=== PATIENT | female | born 1955 | race Caucasian/White ===

== ENCOUNTER 2020-08-15 10:55 | Outpatient (REF) | payer SELFPAY | END 2020-08-15 10:56 | disposition home or self-care (01) | LOC: HO.HAP 10:55 | PROVIDERS: PCP Physician Assistant Medical; Referring Provider Physician Assistant Medical; Visit Provider Physician Assistant Medical | DX: Z13.89 Encounter for screening for other disorder (principal) | CPT/HCPCS: 92700 ==

== ENCOUNTER 2020-08-25 15:38 | Outpatient (REF) | payer SELFPAY | END 2020-08-25 15:39 | disposition home or self-care (01) | LOC: HO.HAP 15:38 | PROVIDERS: PCP Physician Assistant Medical; Referring Provider Physician Assistant Medical; Visit Provider Physician Assistant Medical | DX: Z13.89 Encounter for screening for other disorder (principal) ==

== ENCOUNTER 2021-01-23 09:56 | Outpatient (REF) | payer SELFPAY ==
--- NOTE | 2021-01-23 10:12 | MHC.AU.P13 ---
Hearing Instrument Maintenance Date of Visit: 01/23/21 Right Ear: Paper Reeler: Phonak Model: Audeo P90-13T Serial Number: [id number] Repair Warranty: 09/11/2023 Loss and Damage Warranty: 09/11/2023 Battery Size: 13 Metal Handler: Size 0 M Type of Dome: Small vented dome Type of Wax Guard: Cerushield Left Ear: Paper Reeler: Phonak Model: Audeo P90-13T Serial Number: [id number] RepairWarranty: 09/11/2023 Loss and Damage Warranty: 09/11/2023 Battery Size: 13 Metal Handler: Size 0 M Type of Dome: Small open dome Type of Wax Guard: Cerushield Follow-Up Summary: Hearing aids brought in for maintenance. Hearing aids cleaned, wax guards replaced, mics vacuumed, small open dome left and small vented dome right both replaced - both aids amplifying clearly. Recommendations: Recommendations: Hearing instrument follow-up or maintenance as needed. Signature: Provider: NANCY Martinez-HIS
== END 2021-01-23 09:57 | disposition home or self-care (01) ==
LOC: HO.HAP 09:56
PROVIDERS: Visit Provider Physician Assistant Medical
DX: Z13.89 Encounter for screening for other disorder (principal)

== ENCOUNTER 2021-06-02 10:06 | Outpatient (REF) | payer MEDICARE, BC, SELFPAY ==
--- NOTE | 2021-06-02 14:34 | MHC.AU.AHA ---
Adult Audiological Evaluation Date of Visit: 06/02/21 Reason for Appointment: Audiological re-evaluation to monitor the status of Mrs. Brownlee's hearing loss. She has a longstanding history of bilateral, asymmetrical, sensorineural hearing loss with the right ear hearing worse than the left. She uses hearing aids binaurally. Mrs. Brownlee notes that she has been turning the volume of the hearing aids up frequently and feels she isn't hearing as well. Change in her medical history includes swelling in her neck which is possibly related to her thyroid and is in the process of being evaluated. Previous Hearing Test Results: [facility], 12/14/2019- Normal hearing sloping to a mild to moderate sensorineural hearing loss in the left ear. Normal hearing sloping to a mild to moderately-severe sensorineural hearing loss in the right ear. Medical History: Allergies: Claritin, amoxicillin, epinephrine Medication List: Valacyclovir 500 mg 4 tabs 2x daily, Vitamin D 2000 units, Levothyroxine 50mcg, Vitamin B12 1000 mcg, sertraline 50 mg Hearing Instrument History- Right Ear: Compensation Supervisor: [employer] Model: Spindle Researcheo P90-13T Serial Number: [id number] Battery Size: 13 Repair Warranty: 09/11/2023 Loss and Damage Warranty: 09/11/2023 Dispensed By: [facility] Date of Fittin06/24/20 Hearing Instrument History- Left Ear: Compensation Supervisor: Phonak Model: Spindle Researcheo P90-13T Serial Number: [id number] Battery Size: 13 Warranty: 09/11/2023 Loss and Damage Warranty: 09/11/2023 Dispensed By: [facility] Date of Fittin06/24/20 Otoscopy: Right Ear: Unremarkable Left Ear: Unremarkable Tympanometry: Tympanometry performed due to: To assess integrity of the middle ear system Right Ear: Normal Middle Ear System (Type A) Left Ear: Normal Middle Ear System (Type A) Hearing Evaluation: Transducer(s) Used: Insert Earphones, Bone Conduction Method: Conventional Audiometry Stimuli Used: Pure Tones Right Ear: Description of Hearing: Mild hearing loss at 250 Hz, rising to normal hearing from 500-750 Hz, and sloping to a mild to moderately severe sensorineural hearing loss from 3985-7950 Hz. Left Ear: Description of Hearing: Mild hearing loss at 250 Hz, rising to normal hearing from 500-1000 Hz, and sloping to a mild to moderate sensorineural hearing loss from 5550-0831 Hz. Speech Recognition Threshold (SRT): Method Used: Monitored Live Voice Stimuli Used: Spondee Words Right Ear: 40 dBHL Left Ear: 35 dBHL Word Discrimination: Method: Recorded Lists Word Lists Used: NU-6 Right Ear: 84% at 80 dBHL Left Ear: 92% at 75 dBHL Comparison: Compared to most recent evaluation: Slight decrease bilaterally, particularly in the low-frequencies. Recommendations: Audiological re-evaluation in one year. Hearing aid(s) reprogrammed with updated test results. Diagnosis: Primary Diagnosis: H90.3 Bilateral Sensorineural Hearing Loss Services Performed: Comprehensive Audiological Evaluation (CPT 66864) Tympanometry (CPT 21437) Signature: Provider: Jami Rose, CCC-A
== END 2021-06-02 10:07 | disposition home or self-care (01) ==
LOC: HO.SH 10:06
PROVIDERS: Visit Provider Physician Assistant Medical
DX: H90.3 Sensorineural hearing loss, bilateral (principal)
CPT/HCPCS: 92557; 92567

== ENCOUNTER 2021-06-02 11:41 | Outpatient (REF) | payer SELFPAY | END 2021-06-02 11:42 | disposition home or self-care (01) | LOC: HO.HAP 11:41 | PROVIDERS: Visit Provider Physician Assistant Medical | DX: Z46.1 Encounter for fitting and adjustment of hearing aid (principal); H90.3 Sensorineural hearing loss, bilateral | CPT/HCPCS: V5266 ==

== ENCOUNTER 2022-04-23 15:13 | Outpatient (REF) | payer SELFPAY ==
--- NOTE | 2022-04-23 15:32 | MHC.AU.HFU ---
Hearing Instrument Follow-Up- Binaural Date of Visit: 04/23/22 Right Ear: Air Crew Member: Phonak Model: [employer] P90-13T Serial Number: [id number] Repair Warranty: 09/11/2023 Loss and Damage Warranty: 09/11/2023 Battery Size: 13 Trust Vault Custodian: Size 0 M Type of Dome: Small vented dome Type of Wax Guard: Cerushield Left Ear: Air Crew Member: Phonak Model: Audeo P90-13T Serial Number: [id number] Repair Warranty: 09/11/2023 Loss and Damage Warranty: 09/11/2023 Battery Size: 13 Trust Vault Custodian: Size 0 M Type of Dome: Small open dome Type of Wax Guard: Cerushield Follow-Up Summary: Patient was scheduled for a remote support appointment. Her hearing aids were not being detected by the simon. Patient reports that she recently updated the simon to the new version. [employer] has since stated that there is a compatibility issue with the latest Android and iOS operating system updates, making the simon unable to connect to the hearing aids. The basic Bluetooth functionality still works. [employer] is working on a patch for this problem. Patient reports that the primary reason for the appointment was to turn the volume up. She also reports that she has been getting feedback, especially when she turns the volume up on the hearing aids. Discussed that the feedback would need to be addressed in person, as it could be due to a cerumen issue or because a different dome is needed. The feedback office manager receptionist cannot be run during Remote Support. Her call was transferred to the patient coordinator front desk to schedule an in-person appointment. Diagnosis Code(s): Primary Diagnosis: H90.3 Bilateral Sensorineural Hearing Loss Signature: Provider: Jami Eckert, [facility]
== END 2022-04-23 15:14 | disposition home or self-care (01) ==
LOC: HO.HAP 15:13
PROVIDERS: Visit Provider Physician Assistant Medical
DX: Z13.89 Encounter for screening for other disorder (principal)

== ENCOUNTER 2022-06-01 09:33 | Outpatient (REF) | payer MEDICARE, BC, SELFPAY | END 2022-06-01 09:34 | disposition home or self-care (01) | LOC: HO.HAP 09:33 | PROVIDERS: Visit Provider Family Medicine | DX: Z46.1 Encounter for fitting and adjustment of hearing aid (principal); H90.3 Sensorineural hearing loss, bilateral | CPT/HCPCS: 92552 ==

== ENCOUNTER 2022-06-20 11:19 | Outpatient (REF) | payer SELFPAY ==
--- NOTE | 2022-06-20 13:45 | MHC.AU.HFU ---
Hearing Instrument Follow-Up- Binaural Date of Visit: 06/20/22 Right Ear: Duty Engineer: Phonak Model: Audeo P90-13T Serial Number: [id number] Repair Warranty: 09/10/2022 Loss and Damage Warranty: 09/11/2023 Service Plan: Battery Size: 13 Workforce Development Specialist: Size 0 M Type of Mold: C-Shell #[id number] warranty 09/10/2022 Type of Wax Guard: CeruStop Dispensed By: [facility] Date of Fittin06/24/20 Left Ear: Duty Engineer: Phonak Model: Audeo P90-13T Serial Number: [id number] Repair Warranty: 09/11/2023 Loss and Damage Warranty: 09/11/2023 Service Plan: Battery Size: 13 Workforce Development Specialist: Size 0 M Tubing: Type of Dome: Small open dome Type of Wax Guard: Cerushield Dispensed By: [facility] Date of Fittin06/24/20 Follow-Up Summary: Fit the new right C-Shell (paid $180.00). Practiced insertion several times. Changed acoustics in [employer] software and ran initial feedback test. Blocked vent and re-ran test with much improved results. Discussed patient's own voice quality, and increased occlusion for right aid only with improvement and before patient left she felt she was going to get used to the sound quality quickly. Per patient request, made some adjustments for when in [employer] and in the car using auto fine tuning. Having problems with newly downloaded [employer] simon so gave [employer]'s number for patient to contact. Patient will e-mail me with how she is doing and possibly do Remote Programming if needed. Recommendations:Hearing instrument follow-up or maintenance as needed. Please contact our clinic with any questions or concerns. Diagnosis Code(s):Primary Diagnosis: H90.3 Bilateral Sensorineural Hearing Loss Services Performed: [place] (Quantity): 1 Signature:Provider: Amrita Martins, REBECCA-A
== END 2022-06-20 11:20 | disposition home or self-care (01) ==
LOC: HO.HAP 11:19
PROVIDERS: Visit Provider Physician Assistant Medical
DX: Z46.1 Encounter for fitting and adjustment of hearing aid (principal); H90.3 Sensorineural hearing loss, bilateral
CPT/HCPCS: V5264

== ENCOUNTER 2022-11-16 14:39 | Outpatient (REF) | payer SELFPAY | END 2022-11-16 14:40 | disposition home or self-care (01) | LOC: HO.HAP 14:39 | PROVIDERS: Visit Provider Physician Assistant Medical | DX: Z13.89 Encounter for screening for other disorder (principal) ==

== ENCOUNTER 2022-12-14 14:53 | Outpatient (REF) | payer SELFPAY | END 2022-12-14 14:54 | disposition home or self-care (01) | LOC: HO.HAP 14:53 | PROVIDERS: Visit Provider Physician Assistant Medical | DX: Z13.89 Encounter for screening for other disorder (principal) ==

== ENCOUNTER 2023-04-12 12:10 | Outpatient (REF) | payer SELFPAY | END 2023-04-12 12:11 | disposition home or self-care (01) | LOC: HO.HAP 12:10 | PROVIDERS: Visit Provider Physician Assistant Medical | DX: Z13.89 Encounter for screening for other disorder (principal) ==